=== PATIENT | male | born 2000 | race Hispanic/Latino ===

== ENCOUNTER 2022-09-07 14:28 | Emergency (ER) | payer OTHER ==
[~2022-09-07] VITALS: Ht 175.3 cm; Wt 87.6 kg
[2022-09-07] MEDS ORDERED: IBUPROFEN 600MG TAB PO ONE (15:50)
[2022-09-07] MEDS ORDERED: ONDANSETRON 4MG ORAL DISINTEGRATING TAB PO ONE (15:50)
[2022-09-07] MEDS ORDERED: ACETAMINOPHEN TAB 650MG DOSE (2X325MG) PO ONE (15:50)
[2022-09-07] MEDS ORDERED: IBUP-1022 PO (15:54)
[2022-09-07] MEDS ORDERED: ONDA4TAB6 PO (15:54)
[2022-09-07 16:09] VITALS: BP 114/70; TEMP 96.7; O2SAT 99
== END 2022-09-07 16:11 | disposition home or self-care (01) ==
LOC: M ED 14:28
DX: S00.91XA Abrasion of unspecified part of head, initial encounter (principal); S06.0X0A Concussion without loss of consciousness, initial encounter; W19.XXXA Unspecified fall, initial encounter; Y93.55 Activity, bike riding